=== PATIENT | male | born 2000 | race Caucasian/White ===

== ENCOUNTER 2024-04-04 03:44 | Emergency (ER) | payer SELFPAY ==
[2024-04-04 03:54] VITALS: BP 122/77; PULSE 118; RESP 18; TEMP 98; BMI 32.3
[2024-04-04] MEDS ORDERED: LIDOCAINE VISCOUS 2% ORAL/TOP 15 ML UNIT-DOSE CUP ONE (04:53)
[2024-04-04] MEDS: LIDOCAINE VISCOUS 2% ORAL/TOP 15 ML UNIT-DOSE CUP MM ONE (05:01)
[2024-04-04] MEDS: ONDANSETRON *ODT* 4 MG TABLET SL ONE (05:01)
[2024-04-04 05:38] LABS: THROAT:GRP A STREP NOT DETECTED (NOTDETECTED)
[2024-04-04] MEDS ORDERED: FAMOTIDINE 20 MG TABLET ONE (05:49)
[2024-04-04] MEDS ORDERED: DEXAMETHASONE SOD PHOSPHATE 10 MG/1 ML VIAL ONE (05:49)
[2024-04-04] MEDS: DEXAMETHASONE SOD PHOSPHATE 10 MG/1 ML VIAL IM ONE (05:57)
[2024-04-04] MEDS: FAMOTIDINE 10 MG TABLET PO ONE (05:57)
== END 2024-04-04 06:37 | disposition home or self-care (01) ==
LOC: JER 03:44
PROC: 3E023GC Introduction of Other Therapeutic Substance into Muscle, Percutaneous Approach (ICD-10-PCS; principal; 2024-04-04)
DX: J02.9 Acute pharyngitis, unspecified (principal); R13.10 Dysphagia, unspecified; Z20.822 Contact with and (suspected) exposure to COVID-19
CPT/HCPCS: 0241U-QW; 87651; 99284-25; J1100

== ENCOUNTER 2024-04-20 19:07 | Emergency (ER) | payer OTHER ==
[2024-04-20 19:15] VITALS: BP 129/57; PULSE 93; RESP 18; TEMP 98.1; BMI 38.7
== END 2024-04-20 20:03 | disposition home or self-care (01) ==
LOC: JER 19:07 → JERFT 19:07
DX: L03.032 Cellulitis of left toe (principal)
CPT/HCPCS: 99283-25